=== PATIENT | female | born 1965 | race Two or more races ===

== ENCOUNTER 2016-12-19 17:48 | Inpatient (IN) | payer BC, OTHER ==
[~2016-12-19] VITALS: Ht 170.2 cm; Wt 91.6 kg
[2016-12-19] MEDS ORDERED: MECLIZINE CHEWABLE 25 MG TAB ONE (18:27)
[2016-12-19] MEDS ORDERED: MECLIZINE CHEWABLE 25 MG TAB PO ONE (18:30)
[2016-12-19] MEDS ORDERED: SODIUM CHLORIDE FLUSH 10ML SYR IVF ONE (18:30)
[2016-12-19 18:52] LABS: BLOOD UREA NITROGEN 15 mg/dL (7-18)
[2016-12-19 18:57] LABS: IS PT STATUS REG ER OR PRE ER? YES
[2016-12-19] MEDS ORDERED: ASPIRIN 325 MG TABLET PO STA (19:27)
[2016-12-19] MEDS ORDERED: ASPIRIN 325 MG TABLET ONE (19:31)
[2016-12-19] MEDS ORDERED: POLYETHYLENE GLYCOL 17 GM PACKET PO PRN (20:00)
[2016-12-19] MEDS ORDERED: ONDANSETRON 2MG/ML, 2ML IVPush PRN (20:00)
[2016-12-19] MEDS ORDERED: ACETAMINOPHEN 325 MG TABLET PO PRN (20:00)
[2016-12-19] MEDS ORDERED: BISACODYL 10 MG SUPP PR PRN (20:00)
[2016-12-19 22:30] VITALS: BP 124/74
[2016-12-19] MEDS: SODIUM CHLORIDE FLUSH 3ML SYRINGE IVF SCH (23:29)
[2016-12-20 01:26] VITALS: BP 116/71
[2016-12-20] MEDS: ASPIRIN 81 MG TABLET EC PO SCH (05:42)
[2016-12-20 06:36] VITALS: BP 107/65
[2016-12-20] MEDS: SENNA/DOCUSATE TABLET PO SCH (09:22)
[2016-12-20] MEDS: SODIUM CHLORIDE FLUSH 3ML SYRINGE IVF SCH ×2 (09:23→20:52)
[2016-12-20 13:15] VITALS: BP 126/63
[2016-12-20 18:42] VITALS: BP 94/58
[2016-12-21 01:32] VITALS: BP 95/58
[2016-12-21] MEDS: ASPIRIN 81 MG TABLET EC PO SCH (05:11)
[2016-12-21 07:31] VITALS: BP 93/56
[2016-12-21] MEDS ORDERED: ASPI-621 PO (09:00)
[2016-12-21] MEDS ORDERED: ATOR20TA9 PO (09:00)
[2016-12-21] MEDS: SODIUM CHLORIDE FLUSH 3ML SYRINGE IVF SCH (10:08)
[2016-12-21] MEDS: SENNA/DOCUSATE TABLET PO SCH (10:08)
[2016-12-21] MEDS ORDERED: PNEUMOCOCCAL 23 VACCINE IM-VACC ONE (11:00)
== END 2016-12-21 12:01 | disposition home or self-care (01) | DRG 69 ==
LOC: ED 18:24 → EDIP 19:21 → 4EST 21:23 → DCLOUNGE 12-21 11:28
PROVIDERS: ADMIT Family Medicine; ATTEND Family Medicine
DX: G45.9 Transient cerebral ischemic attack, unspecified (principal); F17.210 Nicotine dependence, cigarettes, uncomplicated; Z82.3 Family history of stroke; Z90.89 Acquired absence of other organs; Z23 Encounter for immunization
CPT/HCPCS: 36415; 70450; 70551; 80048; 80061; 82040; 84439; 84443; 84484; 85025; 90732; 93005; 93306; 93880

== ENCOUNTER → 2017-06-29 | Outpatient (CLI) | payer BC ==
[~2017-06-29] MED LIST: ASPI-621 PO; ATOR20TA9 PO
== END | disposition home or self-care (01) ==
LOC: CFH 09:33
PROVIDERS: ATTEND Specialist
DX: Z12.31 Encounter for screening mammogram for malignant neoplasm of breast (principal)
CPT/HCPCS: 77063; G0202

== ENCOUNTER → 2018-11-22 | Outpatient (CLI) | payer BC ==
[~2018-11-22] MED LIST changes: -ASPI-621 PO; +ASPI81TA45 PO; +ATOR20TA37 PO; -ATOR20TA9 PO
== END | disposition home or self-care (01) ==
LOC: CFH 08:23
PROVIDERS: ATTEND Specialist
DX: Z12.31 Encounter for screening mammogram for malignant neoplasm of breast (principal)
CPT/HCPCS: 77063; 77067